=== PATIENT | female | born 1995 | race Caucasian/White ===

== ENCOUNTER → 2019-03-25 11:18 | Outpatient (CLI) | payer BC, MEDICAID, SELFPAY | PROVIDERS: PCP Family Medicine; Visit Provider Physician Assistant | DX: N30.00 Acute cystitis without hematuria (principal) | CPT/HCPCS: 87086 ==

== ENCOUNTER → 2019-04-11 09:27 | Outpatient (CLI) | payer BC, OTHER, MEDICAID, SELFPAY ==
[2019-04-11 11:29] LABS: Urine N gonorrhoeae NOT DETECTED
[2019-04-11 11:41] LABS: Urine Chlamydia NOT DETECTED
[2019-04-11 11:51] LABS: Hepatitis B Surface Antigen NEGATIVE s/c (NEGATIVE)
[2019-04-11 12:01] LABS: HIV 1 & 2 Ab/Ag 4th Gen Combo NEGATIVE (NEGATIVE)
[2019-04-11 12:07] LABS: Hep C Virus Ab w/Reflex Quant NEGATIVE s/c (NEGATIVE)
[2019-04-13 20:01] LABS: RPR Screen Nonreactive (Nonreactive)
[2019-04-15 13:55] LABS: HSV 1 IgM Screen Negative (Negative); HSV 2 IgM Screen Negative (Negative)
== END ==
PROVIDERS: PCP Family Medicine; Visit Provider Nurse Practitioner
DX: Z11.3 Encounter for screening for infections with a predominantly sexual mode of transmission (principal); N89.8 Other specified noninflammatory disorders of vagina
CPT/HCPCS: 36415; 86592; 86695; 86696; 86803; 87086; 87210; 87340; 87389; 87491; 87591

== ENCOUNTER → 2020-02-06 14:29 | Outpatient (CLI) | payer BC, SELFPAY | PROVIDERS: PCP Family Medicine; Visit Provider Physician Assistant | DX: N89.8 Other specified noninflammatory disorders of vagina (principal) | CPT/HCPCS: 87210 ==

== ENCOUNTER → 2020-02-18 10:06 | Outpatient (CLI) | payer BC, SELFPAY | PROVIDERS: PCP Family Medicine; Visit Provider Nurse Practitioner | DX: N89.8 Other specified noninflammatory disorders of vagina (principal) | CPT/HCPCS: 87210 ==